=== PATIENT | female | born 2000 | race African-American/Black ===

== ENCOUNTER 2019-09-28 19:42 | Emergency (ER) | payer OTHER, SELFPAY ==
[2019-09-28] MEDS ORDERED: Lidocaine 1% PF 5 ML VIAL ONE (21:38)
== END 2019-09-28 22:10 | disposition home or self-care (01) ==
LOC: ERS 19:42
DX: L03.032 Cellulitis of left toe (principal); J45.909 Unspecified asthma, uncomplicated; Z79.51 Long term (current) use of inhaled steroids; W57.XXXA Bitten or stung by nonvenomous insect and other nonvenomous arthropods, initial encounter
CPT/HCPCS: 99282; J2001

== ENCOUNTER 2021-03-15 06:46 | Emergency (ER) | payer SELFPAY ==
[2021-03-15] MEDS ORDERED: Acetaminophen 500 MG TAB ONE (08:56)
[2021-03-15] MEDS ORDERED: Ketorolac Tromethamine 30 MG/ML VIAL ONE (08:56)
[2021-03-15 09:10] LABS: Pregnancy Test - Urine (BHCG) Negative (Negative); Specific Gravity 1.017 (1.002-1.036)
[2021-03-15 09:11] LABS: Bacteria/HPF 4+ HPF (None Seen); Bilirubin Negative (Negative); Blood, Urine 3+ (Negative); Clarity Extra Turbid (Clear); Glucose, Urine (Dipstick) Normal (Negative); Ketone, Urine Negative (Negative); Leukocyte 500 Leu/uL (Negative); Nitrite 2+ (Negative); Pregu Control Background? CLEAR/WHITE (CLR/WHITE); Pregu Control Bar Appear? YES (CONTROL BAR); Protein, Urine (Dipstick) 200 mg/dL (Neg-Trace); RBC/HPF Greater than 50 HPF (0-3); Specific Gravity, Urine 1.017 (1.002-1.036); Squamous Epithelial None Seen HPF (0-3); Transitional Epithelial 0-3 HPF (None Seen); Urobilinogen Normal mg/dL (Less than 2); WBC/HPF Greater than 50 HPF (0-3)
== END 2021-03-15 10:26 | disposition home or self-care (01) ==
LOC: ERS 06:46
DX: N10 Acute pyelonephritis (principal)
CPT/HCPCS: 74176; 81003; 81015; 81025; 87077; 87086; 87186; 96372; J1885

== ENCOUNTER 2021-03-17 15:30 | Inpatient (IN) | payer OTHER, SELFPAY ==
[~2021-03-17 15:30] MED LIST: Iopamidol-370 76% 500 ML 1 ML ONE
[2021-03-17 17:20] LABS: Bacteria/HPF 1+ HPF (None Seen); Bilirubin Negative (Negative); Blood, Urine Negative (Negative); Clarity Turbid (Clear); Glucose, Urine (Dipstick) Normal (Negative); Ketone, Urine Negative (Negative); Leukocyte 250 Leu/uL (Negative); Nitrite Negative (Negative); Protein, Urine (Dipstick) 20 mg/dL (Neg-Trace); RBC/HPF 0-3 HPF (0-3); Specific Gravity, Urine 1.015 (1.002-1.036); Squamous Epithelial 21-50 HPF (0-3); Urobilinogen 3 mg/dL (Less than 2); WBC/HPF 21-50 HPF (0-3)
[2021-03-17 17:21] LABS: Pregnancy Test - Urine (BHCG) Negative (Negative); Pregu Control Background? CLEAR/WHITE (CLR/WHITE); Pregu Control Bar Appear? YES (CONTROL BAR); Specific Gravity 1.015 (1.002-1.036)
[2021-03-17 17:26] LABS: #Basophils 0.1 thou/uL (0.0-0.2); #Eosinphils 0.1 thou/uL (0.0-0.7); #Lymphocytes 2.3 thou/uL (1.20-3.40); #Monocytes 1.3 thou/uL (0.11-0.59); #Neutrophils 4.9 thou/uL (1.40-6.50); %Basophils 0.8 % (0.0-1.0); %Eosinophils 0.6 % (0.0-10.0); %Lymphocytes 26.8 % (21.0-51.0); %Monocytes 14.7 % (0.0-10.0); %Neutrophils 57.1 % (42.0-75.0); Hemoglobin 14.3 g/dL (12.0-16.0); Mean Corpuscular HGB CONC 35.5 g/dL (32.0-36.0); Mean Corpuscular Hemoglobin 31.5 pg (27.0-31.0); Mean Corpuscular Volume 88.7 fL (78.0-98.0); Mean Platelet Volume 7.9 fL (7.4-10.4); Platelet Count 222 thou/uL (130-400); RBC Distribution Width 11.6 % (11.5-14.5); Red Blood Cell (RBC) Count 4.54 mill/uL (4.20-5.40); White Blood Cell (WBC) Count 8.6 thou/uL (4.8-10.8)
[2021-03-17] MEDS ORDERED: Ketorolac Tromethamine 30 MG/ML VIAL ONE (17:29)
[2021-03-17] MEDS ORDERED: cefTRIAXone\\ROCEPHIN 1 GM VIAL ONE (17:29)
[2021-03-17] MEDS ORDERED: Morphine 4 MG/ML VIAL ONE (17:29)
[2021-03-17 17:45] LABS: ALT (SGPT) 9 U/L (8-55); AST (SGOT) 14 U/L (5-34); Albumin 4.3 g/dL (3.5-5.0); Alkaline Phosphatase 49 U/L (40-110); Anion Gap 15 mmol/L (10-20); BUN (Urea Nitrogen) 8 mg/dL (7.0-18.7); Bilirubin, Total 0.5 mg/dL (0.2-1.2); Calc. Creatinine Clearance 0 mL/min (70-130); Calcium 9.2 mg/dL (7.8-10.44); Carbon Dioxide 19 mmol/L (22-29); Chloride 103 mmol/L (98-107); Globulin 3.7 g/dL (2.4-3.5); Glucose 93 mg/dL (70-105); Magnesium 2.1 mg/dL (1.6-2.6); Potassium 3.3 mmol/L (3.5-5.1); Sodium 134 mmol/L (136-145)
[2021-03-17] MEDS ORDERED: Ondansetron PF 4 MG/2 ML Vial ONE ×2 (17:48→17:51)
[2021-03-17] MEDS ORDERED: Ondansetron ODT 4 MG TAB PO PRN (21:43)
[2021-03-17] MEDS ORDERED: Acetaminophen 500 MG TAB PO PRN (21:43)
[2021-03-17] MEDS ORDERED: Ondansetron PF 4 MG/2 ML Vial IVP PRN (21:43)
[2021-03-17] MEDS ORDERED: Potassium Chloride 20 MEQ TAB PO SCH (22:00)
[2021-03-17] MEDS ORDERED: Famotidine 20 MG TAB PO SCH (22:00)
[2021-03-17] MEDS: Sodium Chloride 0.9% 1,000 ML IV SCH (22:22)
[2021-03-17 22:31] VITALS: BMI 27.7
[2021-03-17] MEDS: Ketorolac Tromethamine 30 MG/ML VIAL IVP SCH (23:32)
[2021-03-18] MEDS ORDERED: Ondansetron PF 4 MG/2 ML Vial IVP PRN (01:32)
[2021-03-18] MEDS ORDERED: Ondansetron ODT 4 MG TAB PO PRN (01:32)
[2021-03-18] MEDS: Sodium Chloride 0.9% 1,000 ML IV SCH ×2 (06:01→13:19)
[2021-03-18] MEDS: Ketorolac Tromethamine 30 MG/ML VIAL IVP SCH ×2 (06:01→11:19)
[2021-03-18 06:06] LABS: Anion Gap 13 mmol/L (10-20); BUN (Urea Nitrogen) 7 mg/dL (7.0-18.7); Calc. Creatinine Clearance 120 mL/min (70-130); Calcium 8.2 mg/dL (7.8-10.44); Carbon Dioxide 18 mmol/L (22-29); Chloride 110 mmol/L (98-107); Glucose 79 mg/dL (70-105); Potassium 3.9 mmol/L (3.5-5.1); Sodium 137 mmol/L (136-145)
[2021-03-18 06:23] LABS: Mean Corpuscular HGB CONC 32.9 g/dL (32.0-36.0); Mean Corpuscular Hemoglobin 29.3 pg (27.0-31.0); Mean Corpuscular Volume 88.8 fL (78.0-98.0); Mean Platelet Volume 7.8 fL (7.4-10.4); Platelet Count 194 thou/uL (130-400); RBC Distribution Width 11.5 % (11.5-14.5)
[2021-03-18 06:46] LABS: Band 4 % (5-11); Eosinophils 2 % (0-10); Lymphocytes 40 % (21-51); MDiff Complete? YES; Monocytes 11 % (0-10); Neutrophil 43 % (42-75); RBC Morphology Normal
[2021-03-18] MEDS ORDERED: Potassium Bicarbonate/Cit Ac 20 MEQ TAB PO SCH (08:00)
[2021-03-18] MEDS ORDERED: Famotidine 20 MG TAB PO SCH (09:00)
[2021-03-18] MEDS ORDERED: traMADol HCl 50 MG TAB PO PRN (09:52)
[2021-03-18 11:55] VITALS: BP 102/64; TEMP 98.2
== END 2021-03-18 15:58 | disposition home or self-care (01) | DRG 872 ==
LOC: ERS 15:30 → T4-A 19:57 → OBSVTOIN 20:07
PROVIDERS: ADMIT Family Medicine; ATTEND Family Medicine
DX: A41.51 Sepsis due to Escherichia coli [E. coli] (principal); E87.1 Hypo-osmolality and hyponatremia; N10 Acute pyelonephritis; J45.909 Unspecified asthma, uncomplicated; E87.6 Hypokalemia
CPT/HCPCS: 36415; 74177; 80048; 80053; 81003; 81015; 81025; 83735; 85025; 87040; 87086; 96365; 96375; G0378; J0696; J1885; J2270; J2405; Q9967

== ENCOUNTER 2022-01-31 19:04 | Emergency (ER) | payer OTHER | END 2022-01-31 21:23 | disposition home or self-care (01) | LOC: ERS 19:04 | DX: S46.001A Unspecified injury of muscle(s) and tendon(s) of the rotator cuff of right shoulder, initial encounter (principal); K21.9 Gastro-esophageal reflux disease without esophagitis; J45.909 Unspecified asthma, uncomplicated; X58.XXXA Exposure to other specified factors, initial encounter; Z79.899 Other long term (current) drug therapy ==